=== PATIENT | male | born 1995 | race Caucasian/White ===

== ENCOUNTER 2024-01-03 09:17 | Emergency (ER) | payer OTHER, SELFPAY ==
[2024-01-03 09:18] VITALS: BP 135/79
--- NOTE | 2024-01-03 09:37 | ED.GENMED ---
History of Present Illness
General
Chief Complaint: Abdominal Pain
Source: patient and family (Parents)
Exam Limitations: none
Time Seen by Provider: 01/03/24 09:26
Nursing documentation reviewed up to this point in time: agreed with
Travel History
Have you had any contact with someone who has COVID-19?: No
Do you have any symptoms of coronavirus? Fever > 100 degrees, chills, cough, shortness of breath, sore throat, loss of taste or smell, muscle aches, or headache?: No
History of Present Illness
History of Present Illness:
28-year-old male with past medical history of asthma who presents to the emergency room with his parents for evaluation of upper abdominal discomfort associate with nausea and vomiting. Patient reports onset of symptoms when he woke up this morning
at around 5 AM. They have been constant since that time. He reports a vague upper abdominal fullness that radiates towards his back. Associate with nausea and he says 4-5 episodes of nonbloody emesis this morning. He has not had any constipation
or diarrhea. He has not had any testicular pain or swelling. He has not had any urinary symptoms. He has not had any chest pain or breathing issues. He has not had a fever or chills. He says that he had some pizza and a salad for dinner last
night, nothing unusual. No one else in the family is sick, no known sick contacts. He denies having had similar symptoms in the past. Denies any history of prior abdominal surgeries.
Review of Systems
Review of Systems
All Other Systems: ROS reviewed and negative except as documented in HPI and ROS
Constitutional: Denies fever or chills
EENT: Denies sore throat
Respiratory: Denies cough or trouble breathing
Cardiac: Denies chest pain
ABD/GI: Reports abdominal pain, nausea and vomiting; Denies diarrhea or constipated
: Denies flank pain
Musculoskeletal: Denies neck pain or back pain
Neurological: Denies dizzy or headache
Phy Exam
Physical Exam
Physical Exam:
General: Awake, alert, oriented x3; no acute distress
Head: Normocephalic, atraumatic
Eyes: Conjunctiva normal, sclera anicteric
Throat: Airway intact, handling secretions
Neck: Trachea midline, supple without meningismus
Lungs: Clear to auscultation bilaterally, no wheezing, rales, rhonchi
Heart: Bradycardia with regular rhythm, no murmurs, gallops, or rubs
Abd: Soft, non distended, minimally tender in the epigastric region
Neuro: Cranial nerves grossly intact, speech fluid
Skin: no rash
Extremities: Warm and well-perfused with good pulses
Scores
Heart Failure Risk
Heart Failure Risk Score: Not Applicable
Heart Score for Chest Pain Patients
STEMI patient?: Not applicable
Withdrawal Assessment of Alcohol
Withdrawal Assessment Completed?: Not applicable
Course
Orders/Labs/Results
Orders:
Orders
01/03/24 09:28
0.9% Sodium Chloride 1000 ml [Nss] 1,000 ml IV BOLUS
Ondansetron Injectable [Zofran] 4 mg IV NOW STA
01/03/24 09:47
Complete Blood Count/With Diff Urgent
Comprehensive Metabolic Panel Urgent
Lipase Urgent
01/03/24 10:49
Electrocardiogram (*1) Urgent
Reason for Study: QTc Monitoring
CT Abd/pelvis W Iv Cont Urgent
Comment:
Reason For Exam: upper abd pain radiating to back, N/V
EKG- Treatment ONCE
Metoclopramide [Reglan] 10 mg IV NOW STA
01/03/24 11:50
Morphine Sulfate 4 mg IV NOW STA
01/03/24 12:49
US Abdomen Complete/Upper Urgent
Comment:
Reason For Exam: eval for cholecystitis
Abnormal Lab Results
01/03/24
09:47
WBC 12.8 H 10^3/uL
(4.8-10.8)
MCH 32.8 H pg
(27.0-31.0)
MPV 11.4 H fL
(7.4-10.4)
Absolute Neuts (auto) 10.5 H 10^3/uL
(1.4-6.5)
Neutrophils % 82.2 H %
(42.2-75.2)
Lymphocytes % 11.2 L %
(20.5-51.1)
01/03/24 09:47
01/03/24 09:47
Vital Signs
Initial and Last Documented VS:
Initial Vital Signs
Temp Pulse Resp BP Pulse Ox
36.7 C 52 18 135/79 98
01/03/24 09:18 01/03/24 09:18 01/03/24 09:18 01/03/24 09:18 01/03/24 09:18
Last Documented Vital Signs
Temp Pulse Resp BP Pulse Ox
36.7 C 52 16 115/68 95
01/03/24 09:18 01/03/24 14:00 01/03/24 14:00 01/03/24 14:02 01/03/24 15:00
MDM/Problems Addressed
Differential Diagnosis Includes:
Gastritis, hepatitis, cholecystitis, cholelithiasis, pancreatitis, food poisoning
MDM/Problems Addressed:
28-year-old male presents for evaluation of upper abdominal discomfort radiating towards the back associated with nausea and vomiting since 5 AM this morning. Vital signs normal. Exam as above. Plan to check labs including a CBC and a CMP. Will
check lipase. Will provide some fluids and antiemetic. Considered CT of the abdomen pelvis, upper abdominal ultrasound but with minimal tenderness on exam hold off for now�no clear negation for emergent imaging, low suspicion for surgical
pathology. Will reassess after the above.
Labs reviewed: CBC shows leukocytosis to 12.8. CMP shows no clinically significant abnormalities�notably normal LFTs and lipase. Clinical reassessment after IV Zofran patient having additional vomiting. He says he is having worsening pain in the
abdomen radiating into the back. Still has minimal tenderness. Will send for a CT of the abdomen pelvis. Will treat with IV Reglan. Reassess after the above.
CT reviewed: Patient has some inflammation of the colon near the hepatic flexure consistent with colitis less likely diverticulitis as no diverticula noted. This area is adjacent to the gallbladder which does have some calcified layering but no
clear signs of cholecystitis. He does not have significant tenderness in the right upper quadrant on exam; clinical reassessment his symptoms are greatly improved with ED treatment. Given prominence of nausea and vomiting which is somewhat
atypical for colitis we will send for ultrasound to rule out cholecystitis. Continue to monitor.
Ultrasound of the upper abdomen shows mild gallbladder wall thickening and multiple shadowing echogenic foci in the gallbladder that are immobile consistent with layering sludge and gallstones. Negative sonographic Tom sign. Clinical
reassessment with morphine and Zofran, Reglan patient states his symptoms are completely resolved and he appears quite comfortable. He does have a leukocytosis 12.8 but his abdomen is currently nontender after medication here. Somewhat equivocal
for cholecystitis�discussed with general surgery to evaluate.
General surgery evaluated patient�lower suspicion for cholecystitis no need for emergent surgery. Patient is currently completely pain-free and nontender. They recommended a 1 week course of antibiotics and patient to follow-up as an outpatient.
Patient and family comfortable with this plan. Spoke about return precautions all questions answered.
*Pulse Oximetry
Patient hypoxic: no
*EKG
Interpreted by ED Provider?: Yes
Heart Rate: 55
Rate: bradycardiac
Rhythm: sinus
[place]: normal axis
Interval: normal interval and normal QT interval
QRS Pattern: normal QRS
Ischemia: no ischemia
*Critical Care Note
Total Time (30-74mins, 75-104mins- exclusive of procedures): Not Applicable
Data Reviewed
Source: patient and family (Parents)
Further Testing Considered But Not Given:
Considered ultrasound as above
Patient Management
Discussion with other providers: Potline Monitor (Discussed with general surgery)
ED Attending Note
-
Portions of this chart may have been created with voice recognition software.� Occasional wrong word or��sound alike� substitutions may have occurred due to the inherent limitations of voice recognition software.
Discharge Plan
Departure
Discharge Problem:
Gallstones, Colitis
Instructions: Gallstones (DC)
Prescriptions:
No Action
No Current Medications
0
Referrals:
UNKNOWN - PT DOES,NOT KNOW [Family Provider] -
Activity Restrictions/Additional Instructions:
You should take your antibiotics as prescribed. You must avoid fatty foods. You should follow-up with your doctor next week as we discussed. If your symptoms are worsening you must return to the emergency room to be reassessed.
Thank you for visiting the Emergency Department at [facility].
1. Please schedule a follow up appointment as directed. Call first thing tomorrow morning to make an appointment.
2. If indicated, please take your medications as instructed and indicated on discharge paperwork.
3. If any of your symptoms do not improve, or persist, or become more severe within 6-12 hours, please return to the emergency department for further care.
4. Please return to the emergency department if you develop a headache, neck pain/stiffness, fever greater than 100.4F, chest pain, shortness of breath, persistent nausea, vomiting, slurred speech, difficulty walking, numbness/tingling, weakness,
signs of infection or any other symptoms that are worrisome to you.
Please call [phone] if you have any questions.
Interventions
Interventions:
*Risk Screen - Suicide Last Done: 01/03/24 09:55
*General Assessment Last Done: 01/03/24 09:48
*Neglect/Abuse Screening Last Done: 01/03/24 09:55
ED- Fall Risk Assessment Last Done: 01/03/24 09:50
*ED COVID-19 Vaccine History Last Done: 01/03/24 09:18
TO-Okstzx-Dceckkjuqj Assessment Last Done: 01/03/24 09:50
Discharge Date and Time
Print Language: GUINEAN
[2024-01-03] MEDS: NSS 1000 IV (09:45)
[2024-01-03] MEDS: ZOFRAN 4 MG IV (09:46)
[2024-01-03 09:47] VITALS: BMI 27.5
[2024-01-03 10:02] LABS: % Basophils 0.5 % (0-2); % Eosinophils 1.2 % (0-6); % Immature Granulocytes 0.3 % (0-0.5); % Lymphocytes 11.2 % (20.5-51.1); % Monocytes 4.6 % (1.7-9.3); % Neutrophils 82.2 % (42.2-75.2); Absolute Basophils 0.1 10^3/uL (0-0.2); Absolute Eosinophils 0.2 10^3/uL (0-0.7); Absolute Lymphocytes 1.4 10^3/uL (1.2-3.4); Absolute Monocytes 0.6 10^3/uL (0.1-0.6); Absolute Neutrophils 10.5 10^3/uL (1.4-6.5); Hematocrit 43.5 % (39.0-52.0); Hemoglobin 15.4 g/dL (13.0-18.0); Mean Corp Hgb Conc. 35.4 g/dL (33.0-37.0); Mean Corpuscular Hgb 32.8 pg (27.0-31.0); Mean Corpuscular Volume 92.6 fL (80.0-94.0); Mean Platelet Volume 11.4 fL (7.4-10.4); Nucleated Red Blood Cells % 0 % (-); Platelet Count 240 10^3/uL (130-400); Red Cell Dist. Width 12.3 % (11.5-14.5); White Blood Cell Count 12.8 10^3/uL (4.8-10.8)
[2024-01-03 10:23] LABS: ALT (SGPT) 18 U/L (0-50); AST (SGOT) 22 U/L (17-59); Albumin 4.7 g/dl (3.5-5.0); Alkaline Phosphatase 51 U/L (38-126); Blood Urea Nitrogen 13 mg/dl (9-20); Calcium 9.5 mg/dl (8.4-10.2); Carbon Dioxide 29 mmol/L (22-30); Chloride 105 mmol/L (98-107); Estimated Creatinine Clearance > 125 ml/min; Glucose 99 mg/dl (70-99); Lipase 58 U/L (23-300); Potassium 4.2 mmol/L (3.5-5.1); Sodium 138 mmol/L (135-145); Total Bilirubin 0.7 mg/dl (0.2-1.3); Total Protein 7.2 g/dl (6.3-8.2); eGFR > 60.00
[2024-01-03 11:00] VITALS: BP 131/101
[2024-01-03] MEDS: REGLAN 10 MG IV (11:10)
[2024-01-03] MEDS: MORPHINE SULFATE 4 MG IV (11:56)
[2024-01-03 12:00] VITALS: BP 128/87
[2024-01-03 14:00] VITALS: BP 115/82
[2024-01-03 14:02] VITALS: BP 115/68
--- NOTE | 2024-01-03 15:59 | CON.GS ---
Consultation
-
Requesting Provider: Christianne
Medical History
-
Chief Complaint: LUQ pain/vomiting
History of Present Illness:
Mr. Perez is a 28 yo male with h/o asthma who is visiting [facility] with his parents for his grandmother's . He developed LUQ pain this am with nausea and vomiting prompting him to present for evaluation. He is currently pain free and
without further nausea. He denies fevers or chills. He denies diarrhea or constipation. On exam, his abdomen is soft, non-tender and non-distended.
Past Medical History
Past Medical History: Asthma
Past Surgical History: None
Social History
Tobacco: Non-Smoker
Alcohol: None
Family History
Family History: Adopted
Allergies / Home Medications
Allergy/AdvReac Type Severity Reaction Status Date / Time
amoxicillin [From Augmentin] Allergy Unknown Verified 01/03/24 09:20
clavulanic acid Allergy Unknown Verified 01/03/24 09:20
[From Augmentin]
�Medication �Instructions �Recorded �Confirmed �Type
No Meds [No Current Medications] 01/03/24 01/03/24 History
Review of Systems
-
History Source: Patient and Family
All other systems: Negative unless noted
A 10 point review of systems was completed, and was negative except as per HPI.
Physical Exam
Vital Signs
Temp Pulse Resp BP Pulse Ox
98.1 F 52 16 115/68 95
01/03/24 09:18 01/03/24 14:00 01/03/24 14:00 01/03/24 14:02 01/03/24 15:00
01/02/24 01/03/24 01/04/24
06:59 06:59 06:59
Actual Weight 86.8 kg
Body Mass Index (BMI) 27.5
Lab Results
01/03/24 09:47
01/03/24 09:47
WBC 12.8 10^3/uL (4.8-10.8) H 01/03/24 09:47
Hgb 15.4 g/dL (13.0-18.0) 01/03/24 09:47
Hct 43.5 % (39.0-52.0) 01/03/24 09:47
Plt Count 240 10^3/uL (130-400) 01/03/24 09:47
Abs Immat Gran (auto) 0.0 10^3/uL (0-0.05) 01/03/24 09:47
Neutrophils % 82.2 % (42.2-75.2) H 01/03/24 09:47
Physical Exam
General: Well Developed and Well Nourished
HEENT: Moist Mucous Membranes
Respiratory: Non Labored Respirations
GI: Soft, Non Tender and Non Distended
Skin: Warm and Dry
Neuro: Awake, Alert and AO x 3
Psych: Calm
Data Reviewed
-
CT Scan: Image Personally Visualized and interpreted, Report Reviewed by me, Discussed with Physician, Discussed with Patient and Discussed with Family
Ultrasound: Image Personally Visualized and interpreted, Report Reviewed by me, Discussed with Physician, Discussed with Patient and Discussed with Family
Labs: Labs Reviewed by me, Discussed with Physician, Discussed with Patient and Discussed with Family
Assessment / Plan
-
Assessment:
28 yo male with LUQ abdominal pain and nausea beginning this am. US and CT imaging reviewed. ? Colitis near the hepatic flexure. Layering sludge in gallbladder but without distention, mild wall thickening is noted. No RUQ pain or tenderness. Pain
and nausea now resolved in the ER. Mild leukocytosis. LFT's wnl. ?biliary colic vs gastroenteritis.
Plan:
Pain pattern is not consistent with gallbladder etiology; however, given leukocytosis would be reasonable to give course of antibiotics. Plan for outpatient follow up once returns to [place]. Discussed with Dr. Faust in the ED.
[2024-01-03 16:00] VITALS: BP 126/73
[2024-01-03] MEDS: FLAGYL 500 MG PO (16:29)
[2024-01-03] MEDS: CIPRO 500 MG PO (16:29)
== END 2024-01-03 16:34 | disposition home or self-care (01) ==
LOC: EMR 09:17
PROVIDERS: EMERGENCY PHYSICIAN Emergency Medicine; OTHER PHYSICIAN Surgery
DX: K52.9 Noninfective gastroenteritis and colitis, unspecified (principal); K80.20 Calculus of gallbladder without cholecystitis without obstruction
CPT/HCPCS: 99285; 96374; 96375 ×2; 96361; 74177; 76700; 80053; 83690; 85025; 93005; Q9967